=== PATIENT | male | born 1965 | race African-American/Black ===

== ENCOUNTER → 2017-01-24 | Day surgery (SDC) | payer OTHER, BC ==
[~2017-01-24] MED LIST: ALTACE PO; DESYREL50 MG PO; NAPROSYN500 MG PO; TENORMIN25 MG PO; TOPIRAMATE100 MG PO
--- NOTE | ~2017-01-24 | OR ---
Unit #: [id number] #: [id number] Patient: JUNIOR PAULA [id number] [address] [address] [id number] O MR#: [id number] NAME: JUNIOR PAULA ROOM: Date of Procedure: 01/24/2017 Admission Date: 01/24/2017 Surgeon: Mak Talamantes M.D. : 1965 Attending Physician: Mak Talamantes M.D. Primary Care Physician: Dustin Jackosn M.D. OPERATIVE REPORT PREOPERATIVE DIAGNOSES Post-laminectomy syndrome and chronic radiculopathy. POSTOPERATIVE DIAGNOSES Post-laminectomy syndrome and chronic radiculopathy. PROCEDURE PERFORMED Trial spinal cord stimulator with placement of percutaneous lead with fluoroscopic guidance. HISTORY The patient is a 51-year-old male with previously mentioned diagnosis. She failed extensive conservative treatment and is no longer a surgical candidate and recommendations for trial of spinal cord stimulation following surgery that was required due to a work injury. DESCRIPTION OF PROCEDURE The patient was placed in a prone position. Standard monitors were applied. Sterile prep and drape of the thoracolumbar area was performed. The skin then just to the left of midline was localized with 1% lidocaine. A stab incision was made with 11 blade. A 14-gauge introducer needle was then advanced at the L3 level via right paramedian approach into the epidural space. After confirming proper positioning, a stimulator and wire was advanced cephalad just to the left of midline. The distal electrodes at the top of the T9 stimulation was instituted. Full coverage of the painful areas was obtained with the 5 to 6 electrodes. The stimulating lead was then securely fastened using 2-0 silk. Sterile dressing was applied. The patient was discharged to the recovery room in stable condition. Dictated by... Christiane Sevilal/emre TD: 01/24/2017 09:49 JOB #: [id number] Unit #: [id number] #: [id number] Patient: JUNIOR PAULA OPERATIVE REPORT Page 1 of 1 X Mak Talamantes MD X PROCEDURE OPERATIVE NOTE
== END | disposition home or self-care (01) ==
LOC: CCSC 06:47 → CSUR 08:00 → CCSC 08:00
DX: M96.1 Postlaminectomy syndrome, not elsewhere classified (principal); M54.16 Radiculopathy, lumbar region; I10 Essential (primary) hypertension; Z79.1 Long term (current) use of non-steroidal anti-inflammatories (NSAID); Z79.899 Other long term (current) drug therapy
CPT/HCPCS: C1778; J2250

== ENCOUNTER → 2017-03-14 | Day surgery (SDC) | payer BC ==
--- NOTE | ~2017-03-14 | EKG ---
PATIENT: JUNIOR PAULA UNIT #: [id number] Ventricular Rate: 60 BPM Atrial Rate: 60 BPM P-R Interval: 154 ms QRS Duration: 86 ms Q-T Interval: 396 ms QTC Calculation(Bezet): 396 ms P Harrison: 63 degrees Calculated R Harrison: 69 degrees Calculated T Harrison: 62 degrees Diagnosis Line: Normal sinus rhythm Diagnosis Line: ST elevation, consider early repolarization Diagnosis Line: Borderline ECG Diagnosis Line: No previous ECGs available Diagnosis Line: Confirmed by RIZWAN LIAO MD ([id number]) on Diagnosis Line: 03/15/2017 4:02:47 PM INTERPRETING MD: YANNI JAIN
--- NOTE | ~2017-03-14 | CR301 ---
[facility] A Service of [facility] & [facility] RADIOLOGY TEXT RESULTS PATIENT: JUNIOR PAULA LOCATION: [facility] : 63 UNIT #: [id number] AGE: [address]: Mak Talamantes MD SEX: M ORDER DR: [id number] [place], [place] [address] [id number] O MR#: [id number] Acc #: [id number] NAME: JUNIOR PAULA : 1965 SEX: M STUDY DATE/TIME: 03/14/2017 8:30 UNIT: [facility] ROOM: STUDY DESCRIPTION: CR Fluoro Guide NDL Cath Spine Attending Physician: Mak Talamantes M.D. Ordering Physician: Carlitos Talamantes Primary Care Physician: Dustin Jackson M.D. MEDICAL IMAGING REPORT This report is preliminary unless electronic signature is present EXAM Intraoperative spot view HISTORY Stimulator placement by Dr. Talamantes. FINDINGS Single spot view was obtained during stimulatory placement performed by Dr. Talamantes. Dictated by... Jeffrey Stubbs M.D. THIS IS AN ELECTRONICALLY VERIFIED REPORT Jeffrey Stubbs M.D. at 03/16/2017 10:24 AM TEV/cmm TD: 03/15/2017 14:22 JOB #: [id number] MEDICAL IMAGING REPORT Page 1 of 1 COPY
--- NOTE | ~2017-03-14 | OR ---
Unit #: [id number] #: [id number] Patient: UJNIOR PAULA [id number] [address] [place], [place] [address] [id number] O MR#: [id number] NAME: JUNIOR PAULA ROOM: Date of Procedure: 03/14/2017 Admission Date: 03/14/2017 Surgeon: Mak Talamantes M.D. : 1965 Attending Physician: Mak Talamantes M.D. Primary Care Physician: Dustin Jackson M.D. OPERATIVE REPORT PREOPERATIVE DIAGNOSES Post-laminectomy syndrome, chronic radiculopathy, chronic back pain. POSTOPERATIVE DIAGNOSES Post-laminectomy syndrome, chronic radiculopathy, chronic back pain. PROCEDURES PERFORMED Placed spinal cord stimulator lead x1, placed spinal cord stimulator IPG with complex stimulator programming. ANESTHESIA MAC. PREOPERATIVE ANTIBIOTICS Ancef. ESTIMATED BLOOD LOSS 10 mL. DESCRIPTION OF PROCEDURE The patient was placed in a prone position on an OR table. He got himself comfortable. Standard monitors were applied. Fluoroscopy was used to identify the L1, L2, L3 spinous processes. The skin just to the right of midline at these levels localized with 0.5% Marcaine with epinephrine. A 14-gauge introducer needle was then advanced via right paramedian approach into the epidural space via loss of resistance technique with fluoroscopic guidance. There was a question determine this patient. After getting the needle in the epidural space and using a wire trial, the stimulating electrode leads were advanced just slightly to the left of midline. Then, we removed and replaced 3 different times to get proper stimulating, which covered his entire left leg, buttock, and partial control of his back. It covered all of his main pain flare through the radiculopathy. He did still some back, but was not perfectly covered, so elected to cover that with stimulation trials postop. The catheter system was then securely fastened using the anchor system and 2-0 silk suture. A stimulator pocket was created in the right buttock after localizing the skin with 0.5% Marcaine with epinephrine. Sharp and then Bovie dissection was used to properly size the stimulator. A tunneling device was passed from the buttock to the paraspinous incision and the catheter system was easily threaded to the patient's right buttock. IPG and impedances were checked which were all as expected. Both wounds were then Unit #: [id number] #: [id number] Patient: JUNIOR PAULA copiously irrigated with irrigant. The IPG and wires were placed in the buttock pocket. The subcutaneous tissues were closed in 2 layers with 2-0 Vicryl. The skin was closed with frida. The paraspinous wound was then also closed in 2 layers with 2-0 Vicryl and the skin with frida. Sterile dressings were applied. The patient was discharged to the recovery room in stable condition. The implants included position charging system serial #[id number] [employer] serial #[id number], Infinion 16 contact lead 50 cm serial #[id number], scroll kit Implantable Pulse Generator kit serial #[id number]. Dictated by... Mak Talamantes M.D. AMY/emre TD: 03/14/2017 12:12 JOB #: [id number] OPERATIVE REPORT Page 1 of 1 X Mak Talamantes MD X PROCEDURE OPERATIVE NOTE
== END | disposition home or self-care (01) ==
LOC: CSUR 06:41
DX: G89.29 Other chronic pain (principal); M96.1 Postlaminectomy syndrome, not elsewhere classified; M54.16 Radiculopathy, lumbar region; I10 Essential (primary) hypertension; F17.210 Nicotine dependence, cigarettes, uncomplicated; Z79.1 Long term (current) use of non-steroidal anti-inflammatories (NSAID); Z79.899 Other long term (current) drug therapy; Z98.890 Other specified postprocedural states
CPT/HCPCS: 77003; 93005; C1778; C1820; J0690; J1170; J2250; J3010